=== PATIENT | male | born 1965 | race Caucasian/White ===

== ENCOUNTER 2019-06-30 17:33 | Inpatient (IN) | payer MEDICAID ==
[2019-06-29 22:15] VITALS: BP 128/78
[~2019-06-30] VITALS: Ht 185.4 cm; Wt 108.9 kg
--- NOTE | 2019-06-30 17:33 | NUR ---
ED Nurse Note: patient walked into ED from home c/o coughing, congestion, SOB, chest pain on the left side when coughing. patient reports he had finished zpack that was prescribed for his sinusitis. patient placed on an isolation room, on a patient monitor, ekg being done at bedside. patient is 97% on RA. geen is alert awake x4 ambulatory breathing unlabored and even, speaking in full sentences.
[2019-06-30 18:02] VITALS: BP 107/91
--- NOTE | 2019-06-30 18:20 | Diagnostic Imaging Report ---
EXAM: XR Chest, 1 View CLINICAL HISTORY: SOB TECHNIQUE: Frontal view of the chest. COMPARISON: No relevant prior studies available. FINDINGS: Lungs: Unremarkable. No consolidation. Pleural space: Unremarkable. No pneumothorax. Heart: Unremarkable. No cardiomegaly. Mediastinum: Unremarkable. Bones/joints: Thoracic dextrocurvature with fusion hardware. Left rib cerclage wires, which are fractured. IMPRESSION: No evidence of acute pulmonary disease. Spinal fusion hardware. Fractured left rib cerclage wires.
--- NOTE | 2019-06-30 18:31 | Emergency Room Report ---
History of Present Illness General Chief Complaint: Upper Respiratory Illness Source: Patient (Domenica Mireles) Present Illness HPI 53 YO male presents to the ED C/o SOB with Left sided CP and painful cough x 4 days. Pt. reports previously having sinus infection last week and finished a Z- Pack. Pt. only significant PMHx is HTN and hiatal hernia. Pt. 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 Pt. reports he quit smoking 8 years ago. Pt. denies productive cough or wheezing. He denies dizziness, lower extremity edema or palpitations. Pt. denies fevers or chills. He reports continued nasal congestion. No other aggravation or relieving factors at this time. Pt. reports he was given cough syrup by his PCP with no relief. Denies recent travel. Denies contact with persons who have tested positive for or are under investigation/quarantine for COVID-19. (Domenica Mireles) Allergies: Coded Allergies: AMPICILLIN (Verified Allergy, Unknown, 06/30/19) TRAMADOL (Verified Allergy, Unknown, 06/30/19) COVID-19 Screening Contact w/high risk pt: No Recent Travel to affected area: No Experienced COVID-19 symptoms?: Yes COVID-19 symptoms experienced: Shortness of Breath, Cough (Domenica Mireles) Patient History Past Medical History: see triage record Past Surgical History: none Pertinent Family History: none Reviewed Nursing Documentation: PMH: Agreed; PSxH: Agreed (Domenica Mireles) Nursing Documentation-PMH Hx Hypertension: Yes (Domenica Mireles) Review of Systems All Other Systems: negative except mentioned in HPI (Domenica Mireles) Physical Exam Vital Signs Date Time Temp Pulse Resp B/P (MAP) Pulse Ox O2 Delivery O2 Flow Rate FiO2 06/30/19 17:23 98.4 85 18 125/86 (99) 91 Room Air Sp02 EP Interpretation: reviewed, normal General Appearance: no apparent distress, alert, GCS 15, non-toxic Head: normocephalic, atraumatic Eyes: bilateral eye normal inspection, bilateral eye PERRL ENT: hearing grossly normal, normal voice, nasal congestion Neck: full range of motion Respiratory: chest non-tender, lungs clear, normal breath sounds, no respiratory distress, no accessory muscle use, no wheezing, speaking full sentences Cardiovascular #1: regular rate, rhythm Gastrointestinal: normal bowel sounds, non tender, soft, other - distented soft abdomen Musculoskeletal: normal range of motion, gait/station normal, non-tender Neurologic: alert, motor strength/tone normal, oriented x3, sensory intact, responsive, speech normal Psychiatric: judgement/insight normal Skin: no rash, normal color Lymphatic: no adenopathy (Domenica Mireles) Medical Decision Making PA Attestation Dr. Palomo is my supervising Physician whom patient management has been discussed with. (Domenica Mireles) PA Attestation I participate in the care of this patient along with GM Greene Briefly, this is a 53-year-old male who presents for evaluation chest pain shortness of breath. He was recently treated for an upper respiratory infection and tested negative for COVID-19 at urgent care 5 days ago. Over the past 2 days he has worsening exertional dyspnea and left-sided chest pain which he describes as a pressure. It is present both at rest and with exertion though worse with exertion. He has a dry nonproductive cough. Denies fever or chills. Troponin and labs are largely within normal limits however his EKG shows diffuse T wave inversions in severity in the inferior lateral leads. The patient has not ever had a cardiology evaluation. Will give aspirin and admit for cardiology work-up. (Jimbo Palomo MD) Diagnostic Impression: Primary Impression: ACS (acute coronary syndrome) Additional Impression: Chest pain ER Course 53 YO male presents to the ED C/o SOB with Left sided CP and painful cough x 4 days. Pt. reports previously having sinus infection last week and finished a Z- Pack. Pt. only significant PMHx is HTN and hiatal hernia. Pt. 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 Pt. reports he quit smoking 8 years ago. Pt. denies productive cough or wheezing. He denies dizziness, lower extremity edema or palpitations. Pt. denies fevers or chills. He reports continued nasal congestion. No other aggravation or relieving factors at this time. Pt. reports he was given cough syrup by his PCP with no relief. Denies recent travel. Denies contact with persons who have tested positive for or are under investigation/quarantine for COVID-19. Ddx considered but are not limited to AR, pneumonia, contusion, costochondritis , PE, ACS, Shoulder strain, Chest wall contusion. aortic dissection. COVID-19 Vital signs: Pt. initial O2 Saturations was low 90'1, after being placed on belt cleaner VS are WNL, pt. is afebrile H&PE are most consistent with need to R/O cardiac, DVT vs. Covid. ORDERS: - EK bpm with signs of ischemia demonstrated by inversed T-waves in the anterolateral leads. -CBC: WNL -CMP: WNL -Troponin: WNL -D-Dimer: Pending at time of sign out CXR: WNL ED INTERVENTIONS: - PT. placed on cardiac monitoring. DISCHARGE: At this time pt. is stable for d/c to home. Will provide printed patient care instructions, and any necessary prescriptions. Care plan and follow up instructions have been discussed with the patient prior to discharge. (Domenica Mireles) Laboratory Tests Test 06/30/19 17:18 06/30/19 17:28 06/30/19 19:07 D-Dimer 0.21 mg/L FEU (0.00-0.49) White Blood Count 6.3 K/UL (4.8-10.8) Red Blood Count 5.09 M/UL (4.70-6.10) Hemoglobin 14.8 G/DL (14.2-18.0) Hematocrit 45.2 % (42.0-52.0) Mean Corpuscular Volume 89 FL (80-99) Mean Corpuscular Hemoglobin 29.1 PG (27.0-31.0) Mean Corpuscular Hemoglobin Concent 32.8 G/DL (32.0-36.0) Red Cell Distribution Width 13.5 % (11.6-14.8) Platelet Count 208 K/UL (150-450) Mean Platelet Volume 9.0 FL (6.5-10.1) Neutrophils (%) (Auto) 57.9 % (45.0-75.0) Lymphocytes (%) (Auto) 27.9 % (20.0-45.0) Monocytes (%) (Auto) 7.3 % (1.0-10.0) Eosinophils (%) (Auto) 5.2 % (0.0-3.0) H Basophils (%) (Auto) 1.7 % (0.0-2.0) Sodium Level 142 MMOL/L (136-145) Potassium Level 3.9 MMOL/L (3.5-5.1) Chloride Level 106 MMOL/L (98-107) Carbon Dioxide Level 25 MMOL/L (21-32) Anion Gap 11 mmol/L (5-15) Blood Urea Nitrogen 16 mg/dL (7-18) Creatinine 1.1 MG/DL (0.55-1.30) Estimated Glomerular Filtration Rate > 60 mL/min (>60) Glucose Level 117 MG/DL (74-106) H Calcium Level 8.4 MG/DL (8.5-10.1) L Total Bilirubin 0.2 MG/DL (0.2-1.0) Aspartate Amino Transferase (AST) 15 U/L (15-37) Alanine Aminotransferase (ALT) 32 U/L (12-78) Alkaline Phosphatase 101 U/L (46-116) Troponin I 0.000 ng/mL (0.000-0.056) Total Protein 7.2 G/DL (6.4-8.2) Albumin 3.8 G/DL (3.4-5.0) Globulin 3.4 g/dL Albumin/Globulin Ratio 1.1 (1.0-2.7) Arterial Blood pH 7.400 (7.350-7.450) Arterial Blood Partial Pressure CO2 32.9 mmHg (35.0-45.0) L Arterial Blood Partial Pressure O2 77.8 mmHg (75.0-100.0) Arterial Blood HCO3 19.9 mmol/L (22.0-26.0) L Arterial Blood Oxygen Saturation 95.3 % (95-100) Arterial Blood Base Excess -3.9 (-2-2) L Terry Test Positive (Jimbo Palomo MD) EKG Diagnostic Results EP Interpretation: Dr. Palomo Rate: normal - 77 bpm Rhythm: NSR ST Segments: other Other Impression signs of ischemia demonstrated by inversed T-waves in the anterolateral leads. ASA given to the pt in ED: No PA Scribe Text This Interpretation was scribed by GM Mireles. (Domenica Mireles) Chest X-Ray Diagnostic Results Chest X-Ray Diagnostic Results : Chest X-Ray Ordered: Yes # of Views/Limited/Complete: 1 View Indication: Shortness of Breath EP Interpretation: Yes PA Xray: Interpretation reviewed, by supervising MD, and agrees with findings. Interpretation: no consolidation, no effusion, no acute cardiopulmonary disease Impression: No acute disease Electronically Signed by: Domenica Mireles PA-C (Domenica Mireles) Last Vital Signs Date Time Temp Pulse Resp B/P (MAP) Pulse Ox O2 Delivery O2 Flow Rate FiO2 06/30/19 18:15 81 19 Room Air 06/30/19 18:02 98.4 107/91 97 (Domenica Mireles) Domenica Mireles June 30, 2019 18:31 Jimbo Palomo MD June 30, 2019 20:37
[2019-06-30 18:36] LABS: ANION GAP 11 mmol/L (5-15); BLOOD UREA NITROGEN 16 mg/dL (7-18); CALCIUM 8.4 MG/DL (8.5-10.1); CARBON DIOXIDE 25 MMOL/L (21-32); CHLORIDE 106 MMOL/L (98-107); CREATININE 1.1 MG/DL (0.55-1.30); POTASSIUM 3.9 MMOL/L (3.5-5.1); SODIUM 142 MMOL/L (136-145)
[2019-06-30 18:41] LABS: ALANINE AMINOTRANSFERASE 32 U/L (12-78); ALBUMIN 3.8 G/DL (3.4-5.0); ALBUMIN/GLOBULIN RATIO 1.1 (1.0-2.7); ALKALINE PHOSPHATASE 101 U/L (46-116); ASPARTATE AMINO TRANSFERASE 15 U/L (15-37); BILIRUBIN,TOTAL 0.2 MG/DL (0.2-1.0)
[2019-06-30 18:46] LABS: BASOPHILS % (AUTO) 1.7 % (0.0-2.0); EOSINOPHILS % (AUTO) 5.2 % (0.0-3.0); HEMATOCRIT 45.2 % (42.0-52.0); HEMOGLOBIN 14.8 G/DL (14.2-18.0); LYMPHOCYTES % (AUTO) 27.9 % (20.0-45.0); MEAN CORPUSCULAR VOLUME 89 FL (80-99); MONOCYTES % (AUTO) 7.3 % (1.0-10.0); NEUTROPHILS % (AUTO) 57.9 % (45.0-75.0); PLATELET COUNT 208 K/UL (150-450); RED BLOOD COUNT 5.09 M/UL (4.70-6.10); RED CELL DISTRIBUTION WIDTH 13.5 % (11.6-14.8); WHITE BLOOD COUNT 6.3 K/UL (4.8-10.8)
--- NOTE | 2019-06-30 19:09 | NUR ---
HAND-OFF: Report given to Chelsey ZUNIGA.
--- NOTE | 2019-06-30 19:12 | NUR ---
ED Nurse Note: Report received from EFRAIN Hendricks. Pt is resting in bed, NAD, speaking in full sentences. VSS.
[2019-06-30 19:15] VITALS: BP 112/88
[2019-06-30 21:20] VITALS: BP 143/86
--- NOTE | 2019-06-30 21:20 | NUR ---
ED Nurse Note: Pt is resting in bed with NAD noted. Pt is aaox4, talkative with RN. VSS. Pt is aware of admission. Pt provided with warm blankets. Will continue to monitor.
--- NOTE | 2019-06-30 22:00 | NUR ---
ED Nurse Note: Report given to EFRAIN Galvez.
--- NOTE | 2019-06-30 22:10 | NUR ---
ED Nurse Note: Pt is stable for transfer to tele unit per ERMD. Pt is aaox4, VSS, NAD. Pt transported to unit via gurney by patricia and RN, connected to label press operator. Pt belongings sent with pt. Pt IV is patent and intact.
--- NOTE | 2019-06-30 22:15 | NUR ---
ADMIT ENTRY Received 53 y.o male pt. from ER via stretcher with Acute Coronary Syndrome and left sided chest pain 06/30. A&Ox4, appears relaxed, gait steady. Transferred self with ease from stretcher to bed. VS 97.2-63-18-128/78 97% room air. Pt stated unable to read. Hx of HTN, acid reflux and scoliosis with yesika placements 70% correction. Skin intact. 20g left hand. Troponin unremarkable. Continue to monitor, implement new orders as directed and assist as needed. Sinus rhythm on per telemetry.
[2019-07-01 00:01] VITALS: BP 118/75
[2019-07-01] MEDS ORDERED: Miralax 17gm pkt ORAL PRN (01:00)
--- NOTE | 2019-07-01 01:04 | NUR ---
Phoned Nell, immediate return call by Dr. Phan Vaca with new orders. Reviewed home meds, order to continue home meds as reported, give 325mg of aspirin one time order and begin Heparin Gtt per hospital protocol.
[2019-07-01] MEDS ORDERED: Heparin 25,000u/D5W 500ml 500 ML IV SCH ×4 (01:15→12:00)
[2019-07-01] MEDS ORDERED: Heparin 5000 units/ml inj IV SCH (01:15)
--- NOTE | 2019-07-01 03:50 | NUR ---
Heparin gtt began. 5000 unit bolus given via iv left hand. Heparin drip began 12 units/kg (25.11 ml/h) with baseline APTT 27. Next PTT scheduled for 1000 07/01/2019. Pt tolerated well. Monitor for s/s of bleeding. Pt education concerning nature of medicine and importance of assist to bathroom to prevent falls. Pt stated understood. Continue to monitor. No coughing observed. Chest pain continues 06/30.
[2019-07-01 08:00] VITALS: BP 126/93
--- NOTE | 2019-07-01 08:00 | NUR ---
HANDOFF REPORT Verbal report given to Christian RN. Pt resting quietly in bed. Heparin gtt continues unchanged at 26.11 ml/hr (12 units/kg) and no s/s of bleeding. No coughing. Relinquished care of patient at this time.
--- NOTE | 2019-07-01 08:31 | NUR ---
NURSE NOTES: Received report from Shari Antony RN. Patient c/o chest pain 5/10, on room air, saturating at 98 percent, bed in lowest position, call light within reach. Patient awake and alert, on telephone, asking for coffee, in no apparent distress.
[2019-07-01] MEDS: Lisinopril 10mg tab ORAL SCH (08:32)
[2019-07-01] MEDS: Docusate 100mg cap ORAL SCH ×2 (08:33→20:27)
[2019-07-01] MEDS: Aspirin EC 81mg tab ORAL SCH (08:33)
[2019-07-01] MEDS: DiphenhydrAMINE 25mg Tab ORAL SCH ×2 (08:39→17:26)
--- NOTE | 2019-07-01 08:49 | History & Physical ---
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 Patient denies fever, but was recently treated for a Sinus infection w/ Azithromycin. Currently he is doing well; his initial EKG showed T wave abnormality so patient was started on a heparin drip, and cardio has been consulted. Patient is not on aspirin at home. Patient denies sick contacts Currently patient states the chest pain has improved, his vitals are stable, and he is saturating well not requiring oxygen. Do not suspect COVID SH: Former Smoker, 20ppy history Drug HX: Formerly addicted to Meth FH: HTN, DM Home meds: For Allergies and GERD only Allergies: Coded Allergies: AMPICILLIN (Verified Allergy, Unknown, 06/30/19) TRAMADOL (Verified Allergy, Unknown, 06/30/19) COVID-19 Screening Contact w/high risk pt: No Recent Travel to affected area: No Experienced COVID-19 symptoms?: No COVID-19 symptoms experienced: Shortness of Breath, Cough Patient History History Provided By: Patient Healthcare decision maker Resuscitation status Full Code Advanced Directive on File Social History Social History: (1) Shortness of breath (2) Chest pain Review of Systems Review of Symptoms General ROS: no weight loss or fever Psychological ROS: no depression or mood changes, no memory loss Ophthalmic ROS: no visual changes or eye irritation ENT ROS: no nasal congestion, hearing loss, dizziness Allergy and Immunology ROS: no allergic symptoms or urticaria Hematological and Lymphatic ROS: no swollen glands, unusual bleeding or bruising Endocrine ROS: no polyuria, polydipsia, weight changes, temperature intolerance Respiratory ROS: + SOB Cardiovascular ROS: + chest pain Gastrointestinal ROS: denies abdominal pain, bright red blood in stool. Musculoskeletal ROS: no myalgias or arthralgias Neurological ROS: no TIA or stroke symptoms Dermatological ROS: no new or changing skin lesions, rashes or pruritis Physical Exam Physical Exam General appearance: alert, cooperative, no distress, appears stated age Head: Normocephalic, without obvious abnormality, atraumatic Eyes: conjunctivae/corneas clear. PERRL, EOM's intact. Fundi benign Throat: Lips, mucosa, and tongue normal. Teeth and gums normal Neck: supple, symmetrical, trachea midline, no adenopathy, thyroid: not enlarged, symmetric, no tenderness/mass/nodules, no carotid bruit and no JVD Lungs: clear to auscultation bilaterally, mild wheezing Heart: regular rate and rhythm, S1, S2 normal, no murmur, click, rub or gallop Abdomen: soft, non-tender. Bowel sounds normal. No masses, no organomegaly Extremities: extremities normal, atraumatic, no cyanosis or edema Pulses: 2+ and symmetric Skin: Skin color, texture, turgor normal. No rashes or lesions Neurologic: Grossly normal Last 24 Hour Vital Signs Date Time Temp Pulse Resp B/P (MAP) Pulse Ox O2 Delivery O2 Flow Rate FiO2 07/01/19 08:32 126/93 07/01/19 08:00 97.3 61 20 126/93 (104) 98 07/01/19 00:01 20 118/75 (89) 95 07/01/19 00:00 96.4 62 06/30/19 23:43 Room Air 06/30/19 22:48 Room Air 06/30/19 22:16 63 06/30/19 22:10 97.6 63 21 140/92 99 Room Air 06/30/19 21:20 97.5 66 22 143/86 99 Room Air 06/30/19 19:15 98.4 78 19 112/88 98 Room Air 06/30/19 18:15 81 19 Room Air 06/30/19 18:02 98.4 81 19 107/91 97 Room Air 06/30/19 17:23 98.4 85 18 125/86 (99) 91 Room Air Laboratory Tests Test 06/30/19 17:18 06/30/19 17:28 06/30/19 19:07 07/01/19 02:56 D-Dimer 0.21 mg/L FEU (0.00-0.49) White Blood Count 6.3 K/UL (4.8-10.8) Red Blood Count 5.09 M/UL (4.70-6.10) Hemoglobin 14.8 G/DL (14.2-18.0) Hematocrit 45.2 % (42.0-52.0) Mean Corpuscular Volume 89 FL (80-99) Mean Corpuscular Hemoglobin 29.1 PG (27.0-31.0) Mean Corpuscular Hemoglobin Concent 32.8 G/DL (32.0-36.0) Red Cell Distribution Width 13.5 % (11.6-14.8) Platelet Count 208 K/UL (150-450) Mean Platelet Volume 9.0 FL (6.5-10.1) Neutrophils (%) (Auto) 57.9 % (45.0-75.0) Lymphocytes (%) (Auto) 27.9 % (20.0-45.0) Monocytes (%) (Auto) 7.3 % (1.0-10.0) Eosinophils (%) (Auto) 5.2 % (0.0-3.0) H Basophils (%) (Auto) 1.7 % (0.0-2.0) Sodium Level 142 MMOL/L (136-145) Potassium Level 3.9 MMOL/L (3.5-5.1) Chloride Level 106 MMOL/L (98-107) Carbon Dioxide Level 25 MMOL/L (21-32) Anion Gap 11 mmol/L (5-15) Blood Urea Nitrogen 16 mg/dL (7-18) Creatinine 1.1 MG/DL (0.55-1.30) Estimat Glomerular Filtration Rate > 60 mL/min (>60) Glucose Level 117 MG/DL (74-106) H Calcium Level 8.4 MG/DL (8.5-10.1) L Total Bilirubin 0.2 MG/DL (0.2-1.0) Aspartate Amino Transf (AST/SGOT) 15 U/L (15-37) Alanine Aminotransferase (ALT/SGPT) 32 U/L (12-78) Alkaline Phosphatase 101 U/L (46-116) Troponin I 0.000 ng/mL (0.000-0.056) Total Protein 7.2 G/DL (6.4-8.2) Albumin 3.8 G/DL (3.4-5.0) Globulin 3.4 g/dL Albumin/Globulin Ratio 1.1 (1.0-2.7) Arterial Blood pH 7.400 (7.350-7.450) Arterial Blood Partial Pressure CO2 32.9 mmHg (35.0-45.0) L Arterial Blood Partial Pressure O2 77.8 mmHg (75.0-100.0) Arterial Blood HCO3 19.9 mmol/L (22.0-26.0) L Arterial Blood Oxygen Saturation 95.3 % (95-100) Arterial Blood Base Excess -3.9 (-2-2) L Terry Test Positive Activated Partial Thromboplast Time 27 SEC (23-33) Height (Feet): 6 Height (Inches): 1.00 Weight (Pounds): 240 Medications Current Medications Medications (Trade) Dose Ordered Sig/Ronna Route PRN Reason Start Time Stop Time Status Last Admin Dose Admin Acetaminophen (Tylenol) 650 mg Q4H PRN ORAL FEVER 07/01/19 01:00 07/31/19 00:59 Acetaminophen (Tylenol) 650 mg Q4H PRN ORAL Mild Pain (Pain Scale 1-3) 07/01/19 01:00 07/31/19 00:59 Aspirin (Ecotrin) 81 mg DAILY ORAL 07/01/19 09:00 08/15/19 08:59 07/01/19 08:33 Atorvastatin Calcium (Lipitor) 80 mg BEDTIME ORAL 07/01/19 21:00 09/29/19 20:59 Cetirizine HCl (ZyrTEC) 10 mg DAILY ORAL 07/01/19 09:00 09/29/19 08:59 07/01/19 08:39 Diphenhydramine HCl (Benadryl) 25 mg BID ORAL 07/01/19 09:00 07/31/19 08:59 07/01/19 08:39 Docusate Sodium (Colace) 100 mg EVERY 12 HOURS ORAL 07/01/19 09:00 07/31/19 08:59 07/01/19 08:33 Heparin Sodium/ Dextrose 500 ml @ 26.127 mls/ hr ADJUST PER PROTOCOL IV 07/01/19 02:30 07/31/19 01:14 07/01/19 03:45 Lisinopril (ZestriL) 10 mg DAILY ORAL 07/01/19 09:00 07/31/19 08:59 07/01/19 08:32 Ondansetron HCl (Zofran) 4 mg Q6H PRN IVP Nausea & Vomiting 07/01/19 01:00 07/31/19 00:59 Pantoprazole (Protonix) 40 mg BID ORAL 07/01/19 09:00 07/31/19 08:59 07/01/19 08:32 Polyethylene Glycol (Miralax) 17 gm DAILYPRN PRN ORAL Constipation 07/01/19 01:00 07/31/19 00:59 Assessment/Plan Status: stable Assessment/Plan: Assessment #CP R/O ACS, EKG w/ non specific ST changes #HTN #Hx of Scoliosis Plan Consult to Cardiology S/P Heparin drip Trend Troponins, EKG, Echo ASA , Atorvastatin, Lisinopril, hold BB given bradycardia Patient recently finished home Azithro course and CXR clean; hold off on AB for now RT assessment prn Obtain and reconcile home meds DVT/GI ppx Cardiac Diet Lillie Crabtree D.O. July 01, 2019 08:49
--- NOTE | 2019-07-01 10:49 | NUR ---
NURSE NOTES: Herbie Abreu, is drawing blood for the aPTT.
[2019-07-01 12:00] VITALS: BP 131/99
[2019-07-01] MEDS ORDERED: Heparin 5000 units/ml inj SUBQ SCH (12:00)
[2019-07-01 16:00] VITALS: BP 133/82
--- NOTE | 2019-07-01 19:16 | Cardiac Electrophysiology PN ---
Subjective Subjective [id number] Objective Last 24 Hour Vital Signs Date Time Temp Pulse Resp B/P (MAP) Pulse Ox O2 Delivery O2 Flow Rate FiO2 07/01/19 16:00 97.7 61 20 133/82 (99) 96 07/01/19 16:00 61 07/01/19 12:00 97.8 63 20 131/99 (110) 97 07/01/19 12:00 58 07/01/19 09:00 Room Air 07/01/19 08:32 126/93 07/01/19 08:00 97.3 61 20 126/93 (104) 98 07/01/19 08:00 60 07/01/19 00:01 20 118/75 (89) 95 07/01/19 00:00 96.4 62 06/30/19 23:43 Room Air 06/30/19 22:48 Room Air 06/30/19 22:16 63 06/30/19 22:10 97.6 63 21 140/92 99 Room Air 06/30/19 21:20 97.5 66 22 143/86 99 Room Air Intake and Output 06/30/19 07/01/19 19:00 07:00 Intake Total 78.33 ml Output Total 400 ml Balance -321.67 ml IV Total 78.33 ml Output Urine Total 400 ml # Voids 2 Laboratory Tests Test 07/01/19 02:56 07/01/19 10:30 07/01/19 17:45 Activated Partial Thromboplast Time 27 SEC (23-33) 57 SEC (23-33) H 71 SEC (23-33) H Troponin I 0.000 ng/mL (0.000-0.056) Matthieu Hood MD July 01, 2019 19:16
--- NOTE | 2019-07-01 19:24 | NUR ---
NURSE NOTES: Pt received from Christian, RN alert and oriented x4 with no acute s/s of distress noted. IV site asymptomatic and patent on L hand 20g, saline lock. Bed in lowest position, call light and belongings within reach.
[2019-07-01] MEDS ORDERED: Lexiscan 0.4mg/5ml syringe IV PRN (19:30)
--- NOTE | 2019-07-01 19:38 | NUR ---
HAND-OFF: Report given to Maria G Liao RN. Patient sitting up in bed, awake and alert, watching television, IV patent in left hand, saline locked, no c/o pain, no SOB, bed in lowest position, call light within reach, on room air saturating at 98%.
--- NOTE | 2019-07-01 19:43 | NUR ---
NURSE NOTES: Endorsing follow-up on placing EKG into chart per Dr. Matthieu Hood request.
[2019-07-01 20:00] VITALS: BP 135/87
[2019-07-01] MEDS ORDERED: Atorvastatin 80mg tab ORAL SCH (21:00)
[2019-07-02] VITALS: BP 121/68
--- NOTE | 2019-07-02 02:30 | Consultation ---
DATE OF CONSULTATION: 07/01/2019 CARDIOLOGY CONSULTATION CONSULTING PHYSICIAN: Matthieu Hood MD. REFERRING PHYSICIAN: Bravo Camejo MD. REASON FOR CONSULTATION: Chest pain. HISTORY OF PRESENT ILLNESS: The patient is a 53-year-old gentleman with history of hypertension, gastroesophageal reflux disease, questionable myocardial infarction three years ago even though he never had cardiac catheterization. The patient also has history of drug use including crystal meth, but he says about 10 years ago. The patient also has history of severe scoliosis, status post surgical intervention. The patient was admitted to the hospital for increasing chest pain and shortness of breath. The patient was recently treated for sinus infection on azithromycin. The patient was started on heparin drip. However, he was ruled out for myocardial infarction and heparin drip was just discontinued. REVIEW OF SYSTEMS: Review of systems was negative other than what is mentioned in the history of present illness. PAST MEDICAL HISTORY: As mentioned above. FAMILY HISTORY: Includes hypertension and diabetes. ALLERGIES: . He is allergic to ampicillin and tramadol. SOCIAL HISTORY: He has history of heavy smoking as well as crystal meth use. PHYSICAL EXAMINATION: VITAL SIGNS: Show blood pressure is 132/82, pulse 61, respirations 18, and temperature 97.1. HEAD AND NECK: Showed no JVD or carotid bruit. LUNGS: Clear. CARDIOVASCULAR: Regular S1 and S2 with no gallop or murmur. ABDOMEN: Soft. EXTREMITIES: No pitting edema. LABORATORY AND DIAGNOSTIC DATA: His labs show white count 6.2, hemoglobin 14.8, hematocrit 45.5, platelet of 208. Sodium is 142, potassium 3.9, BUN of 16, creatinine 1.1. Troponin negative x2. ASSESSMENT AND PLAN: 1. Atypical chest pain. The patient was ruled out for myocardial infarction. He already had an echocardiogram, but the preliminary report show ejection fraction of 55% to 60%. We will schedule the patient for stress test in the morning for further evaluation. 2. Hyperlipidemia, on Lipitor. 3. Hypertension, on lisinopril 10 mg daily. 4. Gastroesophageal reflux disease on Protonix and . Thank you very much for allowing me to participate in the care of this patient. Please do not hesitate to contact me for any questions regarding my evaluation. Sincerely, Matthieu Hood M.D. DR: Alex JOB#: [id number] CC:
[2019-07-02 04:00] VITALS: BP 131/84
--- NOTE | 2019-07-02 05:15 | NUR ---
NURSE NOTES: EKG done and placed in chart.
--- NOTE | 2019-07-02 07:30 | NUR ---
NURSE NOTES: Received report from EFRAIN Goodman. Patient in bed resting, no active s/s cardiac, respiratory distress noticed at this time. Patient stated chest pain in and out and for now denies pain. Endorsed patient schedule for stress test, NPO at midnight. IV on left hand 20G, asymptomatic, patent, intact. Bed in lowest position, side rails upx3, call light within reach. Will continue to monitor.
--- NOTE | 2019-07-02 07:36 | NUR ---
HAND-OFF: Report given to EFRAIN Gutierrez.
[2019-07-02 08:00] VITALS: BP 128/78
--- NOTE | 2019-07-02 08:07 | General Progress Note ---
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 #CP R/O ACS, EKG w/ non specific ST changes #HTN #HLD #GERD -cont. in-pt medical care -ACS ruled out, trops negative, S/P Heparin drip -Echo EF 55-60% -ASA , Atorvastatin, Lisinopril, hold BB given bradycardia -PPI -Patient recently finished home Azithro course and CXR clean; hold off on AB for now -Cardiology following - stress test today, if negative OK for d/c home #Hx of Scoliosis -no acute issues at this time DVT/GI ppx Cardiac Diet Time spent: 28 mins, 15 mins spent with pt counseling and coordination of care w /RNDr. Additional 30 mins spent w/review of H&P, service delivery management consultant notes, labs, radiographic findings and discussion w/cardio. Subjective Allergies: Coded Allergies: AMPICILLIN (Verified Allergy, Unknown, 06/30/19) TRAMADOL (Verified Allergy, Unknown, 06/30/19) Subjective F/u for chest pain, ACS ruled out. Pt getting stress test today, states he is feeling much better. Notes sinus pain, denies f/c, states he does not want anything for his sinuses as he gets this often and is managed on benadryll and brandi. Objective Last 24 Hour Vital Signs Date Time Temp Pulse Resp B/P (MAP) Pulse Ox O2 Delivery O2 Flow Rate FiO2 07/02/19 04:00 73 07/02/19 04:00 98.7 64 18 131/84 (100) 98 07/02/19 00:00 97.7 59 18 121/68 (85) 97 07/02/19 00:00 69 07/01/19 21:00 Room Air 07/01/19 20:00 98.2 62 18 135/87 (103) 98 07/01/19 20:00 65 07/01/19 16:00 97.7 61 20 133/82 (99) 96 07/01/19 16:00 61 5/10/20 12:00 97.8 63 20 131/99 (110) 97 07/01/19 12:00 58 07/01/19 09:00 Room Air 07/01/19 08:32 126/93 Intake and Output 07/01/19 07/02/19 19:00 07:00 Intake Total 682.559 ml 350 ml Balance 682.559 ml 350 ml Intake Oral 400 ml 350 ml IV Total 282.559 ml # Voids 3 3 Laboratory Tests 07/01/19 10:30: Activated Partial Thromboplast Time 57H, Troponin I 0.000 07/01/19 17:45: Activated Partial Thromboplast Time 71H Height (Feet): 6 Height (Inches): 1.00 Weight (Pounds): 240 Objective General appearance: alert, cooperative, no distress, appears stated age Head: Normocephalic, without obvious abnormality, atraumatic Eyes: conjunctivae/corneas clear. EOM's intact. Throat: Lips, mucosa, and tongue normal. Teeth and gums normal Neck: trachea midline, no adenopathy, thyroid: not enlarged, symmetric, no tenderness/mass/nodules, no carotid bruit and no JVD Lungs: clear to auscultation bilaterally, mild wheezing Heart: regular rate and rhythm, S1, S2 normal, no murmur, click, rub or gallop Abdomen: soft, non-tender. Bowel sounds normal. No masses, no organomegaly Extremities: extremities normal, atraumatic, no cyanosis or edema Pulses: 2+ and symmetric Skin: Skin color, texture, turgor normal. No rashes or lesions Neurologic: Grossly normal Jose Martin M.D. July 02, 2019 08:07
[2019-07-02 08:55] LABS: BASOPHILS % (AUTO) 1.7 % (0.0-2.0); EOSINOPHILS % (AUTO) 4.6 % (0.0-3.0); HEMATOCRIT 44.5 % (42.0-52.0); HEMOGLOBIN 15.5 G/DL (14.2-18.0); LYMPHOCYTES % (AUTO) 27.6 % (20.0-45.0); MEAN CORPUSCULAR VOLUME 85 FL (80-99); MONOCYTES % (AUTO) 7.5 % (1.0-10.0); NEUTROPHILS % (AUTO) 58.6 % (45.0-75.0); PLATELET COUNT 201 K/UL (150-450); RED BLOOD COUNT 5.23 M/UL (4.70-6.10); WHITE BLOOD COUNT 5.9 K/UL (4.8-10.8)
[2019-07-02] MEDS: DiphenhydrAMINE 25mg Tab ORAL SCH (09:00)
[2019-07-02] MEDS: Docusate 100mg cap ORAL SCH ×2 (09:00→10:07)
[2019-07-02] MEDS: Lisinopril 10mg tab ORAL SCH (09:00)
--- NOTE | 2019-07-02 09:48 | NUR ---
CASE MANAGEMENT:REVIEW 53 YR OLD MALE WALKED IN TO ER CC; COUGH, CONGESTION AND SOB. LEFT SIDED CHEST PAIN WITH COUGHING PMH: FINISHED Z-PACK FOR SINUSITIS SI:ACS. CHEST PAIN 98.4 85 18 125/86 91% ON RA PCO2-32.9 HCO3-19.9 TROPONIN(-) IS: HEPARIN GTT ASA PO COVID 19 SWAB D-DIMER CHEST XRAY : TO TELEMETRY DCP; FROM HOME
[2019-07-02 10:01] LABS: ANION GAP 9 mmol/L (5-15); BLOOD UREA NITROGEN 20 mg/dL (7-18); CALCIUM 9.2 MG/DL (8.5-10.1); CARBON DIOXIDE 29 MMOL/L (21-32); CHLORIDE 103 MMOL/L (98-107); CHOLESTEROL 243 MG/DL (< 200); HDL CHOLESTEROL 43 MG/DL (40-60); POTASSIUM 4.8 MMOL/L (3.5-5.1); SODIUM 141 MMOL/L (136-145); TRIGLYCERIDES 284 MG/DL (30-150)
--- NOTE | 2019-07-02 10:04 | NUR ---
CASE MANAGEMENT:REVIEW 07/02/19 SI: ACS 98.7 64 18 131/84 98% ON RA TROPONIN(-) X2 IS: LIPITOR PO QHS IV LEXISCAN X1 COLACE PO Q12 ASA PO QD LISINOPRIL PO QD PROTONIX PO BID BENADRYL PO BID ZYRTEC PO QD : TELEMETRY DCP: FROM HOME PLAN: MAINTAIN ISOLATION ~ PENDING COVID 19 RESULTS STRESS TEST
[2019-07-02] MEDS: Aspirin EC 81mg tab ORAL SCH (10:07)
--- NOTE | 2019-07-02 10:47 | NUR ---
*-* NO INSURANCE INFORMATION IN THE BAR UNABLE TO SEND CLINICALS OR REVIEWS *-*
--- NOTE | 2019-07-02 10:47 | NUR ---
*-* INSURANCE *-* ALL CLINICALS AND REVIEWS HAVE BEEN FAXED TO: [employer] [phone] Work Work Fax Addendum: 07/02/19 at 1051 by MARILEE WANG ALSO SENT TO INSURANCE INFO IN THE [facility] [phone] Work [phone] FAX
[2019-07-02 12:00] VITALS: BP 131/87
--- NOTE | 2019-07-02 13:00 | Cardiac Electrophysiology PN ---
Assessment/Plan Assessment/Plan 1. Atypical chest pain. Was ruled out for myocardial infarction. Echocardiogram show ejection fraction of 55% to 60%. AWaiting results of stress test 2. Hyperlipidemia, on Lipitor. 3. Hypertension, on lisinopril 10 mg daily. 4. Gastroesophageal reflux disease on Protonix DW RN Subjective Subjective No CP or SOB. Getting 3rd part of stress test today Objective Last 24 Hour Vital Signs Date Time Temp Pulse Resp B/P (MAP) Pulse Ox O2 Delivery O2 Flow Rate FiO2 07/02/19 09:00 Room Air 07/02/19 09:00 128/78 07/02/19 08:00 97.7 80 18 128/78 (95) 96 07/02/19 04:00 73 07/02/19 04:00 98.7 64 18 131/84 (100) 98 07/02/19 00:00 97.7 59 18 121/68 (85) 97 07/02/19 00:00 69 07/01/19 21:00 Room Air 07/01/19 20:00 98.2 62 18 135/87 (103) 98 07/01/19 20:00 65 07/01/19 16:00 97.7 61 20 133/82 (99) 96 07/01/19 16:00 61 Intake and Output 07/01/19 07/02/19 19:00 07:00 Intake Total 682.559 ml 350 ml Balance 682.559 ml 350 ml Intake Oral 400 ml 350 ml IV Total 282.559 ml # Voids 3 3 Laboratory Tests Test 07/01/19 17:45 07/02/19 08:20 Activated Partial Thromboplast Time 71 SEC (23-33) H White Blood Count 5.9 K/UL (4.8-10.8) Red Blood Count 5.23 M/UL (4.70-6.10) Hemoglobin 15.5 G/DL (14.2-18.0) Hematocrit 44.5 % (42.0-52.0) Mean Corpuscular Volume 85 FL (80-99) Mean Corpuscular Hemoglobin 29.6 PG (27.0-31.0) Mean Corpuscular Hemoglobin Concent 34.8 G/DL (32.0-36.0) Red Cell Distribution Width 12.0 % (11.6-14.8) Platelet Count 201 K/UL (150-450) Mean Platelet Volume 7.2 FL (6.5-10.1) Neutrophils (%) (Auto) 58.6 % (45.0-75.0) Lymphocytes (%) (Auto) 27.6 % (20.0-45.0) Monocytes (%) (Auto) 7.5 % (1.0-10.0) Eosinophils (%) (Auto) 4.6 % (0.0-3.0) H Basophils (%) (Auto) 1.7 % (0.0-2.0) Sodium Level 141 MMOL/L (136-145) Potassium Level 4.8 MMOL/L (3.5-5.1) Chloride Level 103 MMOL/L (98-107) Carbon Dioxide Level 29 MMOL/L (21-32) Anion Gap 9 mmol/L (5-15) Blood Urea Nitrogen 20 mg/dL (7-18) H Creatinine 1.0 MG/DL (0.55-1.30) Estimat Glomerular Filtration Rate > 60 mL/min (>60) Glucose Level 104 MG/DL (74-106) Hemoglobin A1c 5.9 % (4.3-6.0) Calcium Level 9.2 MG/DL (8.5-10.1) Troponin I 0.000 ng/mL (0.000-0.056) Triglycerides Level 284 MG/DL (30-150) H Cholesterol Level 243 MG/DL (< 200) H LDL Cholesterol 158 mg/dL (<100) H HDL Cholesterol 43 MG/DL (40-60) Cholesterol/HDL Ratio 5.7 (3.3-4.4) H Thyroid Stimulating Hormone (TSH) 1.412 uiU/mL (0.358-3.740) Objective HEAD AND NECK: Showed no JVD or carotid bruit. LUNGS: Clear. CARDIOVASCULAR: Regular S1 and S2 with no gallop or murmur. ABDOMEN: Soft. EXTREMITIES: No pitting edema. Matthieu Hood MD July 02, 2019 13:00
--- NOTE | 2019-07-02 13:49 | Diagnostic Imaging Report ---
Indications: Chest pain Technique: Single day single isotope protocol utilized. Initially, resting images obtained using IV administration 10.9 millicuries 99M technetium Myoview. Subsequently, patient underwent lexiscan stress testing. See cardiology report for details. During Lexiscan infusion, IV administration 30.5 mCi 99 M technetium Myoview. SPECT and planar images obtained. SPECT images gated to 8 phases of the cardiac cycle were also obtained, and reformatted into cine images for evaluation of ejection fraction. Comparison: none Findings: Per cardiology report, patient experienced no symptoms during the infusion. Per cardiology report, resting EKG demonstrates normal sinus rhythm. Presence or absence of ST changes during infusion is not described. On imaging, there is questionably a tiny area of decreased perfusion at the inferolateral wall at the apex seen on only one or 2 slices on the axial and coronal projections. This is not evident on the post stress images. No other fixed nor reversible perfusion defects are demonstrated. Normal of ventricular chamber size. Calculated post stress ejection fraction 71%. No evidence of wall motion abnormality Impression: Nonischemic clinical response to pharmacologic stress, per cardiology report Nonischemic electrocardiographic response to pharmacologic stress, per cardiology report Very questionable tiny focal area of reversible decreased perfusion in the inferolateral wall at the apex. Suspect artifactual, but small focal area of ischemia not completely excludable. Correlate with clinical findings. No other perfusion abnormality demonstrated Calculated post stress ejection fraction greater than 70% Calculated post stress ejection fraction %
--- NOTE | 2019-07-02 14:41 | NUR ---
NURSE NOTES: Per Dr. Hood, patient cleared from cardiology stand point. Dr. Martin made aware.
[2019-07-02] MEDS ORDERED: PANTOPRAZOLE SO40 MG ORAL (14:44)
[2019-07-02] MEDS ORDERED: ASPIRIN EC81 MG ORAL (14:44)
[2019-07-02] MEDS ORDERED: ZESTRIL10 M1 ORAL (14:44)
[2019-07-02] MEDS ORDERED: LIPITOR80 MG ORAL (14:44)
--- NOTE | 2019-07-02 14:47 | Discharge Summary ---
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 ACS was ruled out, trops negative, EF 55-60%. Cardio was consulted and pt underwent nuclear med stress test which was negative. Pt to be d/c home w/ASA, statin, PPI for 14 days, and lisinopril given HTN during hospital stay. Pt instructed to f/u w/PCP as o/p for medication adjustments. d/c diagnosis #Atypical CP, ACS ruled out, likely2/2 GERD #HTN #HLD #GERD #Hx of Scoliosis d/c planning >30 mins. Discharge Medications New Medications: Aspirin Ec* (Aspirin Ec*) 81 Mg Tablet. 81 MG ORAL DAILY for 30 Days, #30 TAB 3 Refills Atorvastatin (Lipitor) 80 Mg Tablet 40 MG ORAL BEDTIME for 30 Days, #30 TAB 3 Refills Lisinopril* (Zestril*) 10 Mg Tablet 10 MG ORAL DAILY for 30 Days, #30 TAB 3 Refills Pantoprazole* (Pantoprazole*) 40 Mg Tablet. 40 MG ORAL BID for 14 Days, #28 TAB Discharge Condition Upon Discharge: stable Discharge Vital Signs Last Vital Signs Date Time Temp Pulse Resp B/P (MAP) Pulse Ox O2 Delivery O2 Flow Rate FiO2 07/02/19 09:00 Room Air 07/02/19 09:00 128/78 07/02/19 08:00 97.7 80 18 96 Discharge Disposition Patient was discharged to home Discharge Instructions Discharge Instructions Follow up with: PCP in 3-5 days. Jose Martin M.D. July 02, 2019 14:47
--- NOTE | 2019-07-02 15:55 | NUR ---
NURSE NOTES: Patient discharged per Dr. Martin. Per [facility], received prescription for the patient. Patient made aware of medication, educated for side effects and benefits. IV removed, ID band removed and placed in shredder, truck engine technician returned to laboratory tech. Patient left with all belongings, family member, Danae picked up the patient via private vehicle in a stable condition.
--- NOTE | 2019-07-03 15:04 | NUR ---
*-* INSURANCE *-* UPDATED CLINICALS AND DISCHARGE SUMMARY HAVE BEEN FAXED TO: [facility] [phone] Work Work Fax & [facility] [phone] Work [phone] FAX
== END 2019-07-02 17:13 | disposition home or self-care (01) | DRG 243 ==
LOC: EDBD 17:33 → EMR 18:45 → EDBEDREQ 20:31 → 2E 21:38
DX: K21.9 Gastro-esophageal reflux disease without esophagitis (principal); R07.89 Other chest pain; I10 Essential (primary) hypertension; Z88.6 Allergy status to analgesic agent; Z88.1 Allergy status to other antibiotic agents; I25.2 Old myocardial infarction; E78.5 Hyperlipidemia, unspecified; Z87.891 Personal history of nicotine dependence; F15.21 Other stimulant dependence, in remission; K44.9 Diaphragmatic hernia without obstruction or gangrene
CPT/HCPCS: 36415; 36600; 71045; 78452; 80048; 80053; 80061; 82803; 83036; 84443; 84484; 85025; 85379; 85730; 93005; 93017; 93306; 99285; J2785

== ENCOUNTER 2019-08-17 11:32 | Emergency (ER) | payer MEDICAID, OTHER ==
[~2019-08-17] VITALS: Ht 185.4 cm; Wt 108.9 kg
[~2019-08-17 11:32] MED LIST: ASPIRIN EC81 MG ORAL; LIPITOR80 MG ORAL; PANTOPRAZOLE SO40 MG ORAL; ZESTRIL10 M1 ORAL
[2019-08-17 11:45] VITALS: BP 120/76
[2019-08-17] MEDS ORDERED: Ketorolac 30mg Inj IV ONE (11:45)
[2019-08-17] MEDS ORDERED: Omnipaque-300 100ml vial INJ PRN (11:45)
[2019-08-17] MEDS ORDERED: PROPRANOLOL HCL40 MG ORAL (11:47)
[2019-08-17] MEDS ORDERED: BANOPHEN50 MG PO (11:47)
[2019-08-17] MEDS ORDERED: CARAFATE1 G1 ORAL (11:47)
[2019-08-17] MEDS ORDERED: LEVOCETIRIZINE D5 MG ORAL (11:47)
[2019-08-17] MEDS ORDERED: SULFAMETHOXAZO480 ML ORAL (11:47)
--- NOTE | 2019-08-17 11:48 | NUR ---
ED Nurse Note:pt. came with c/o right flank pain started today
--- NOTE | 2019-08-17 11:53 | Emergency Room Report ---
History of Present Illness General Chief Complaint: Abdominal Pain Source: Patient, Medical Record Present Illness HPI 53-year-old male history of hypertension, presents with right flank pain that started suddenly, no aggravating relieving factors he describes the pain is sharp, severity is moderate, constant, no nausea no vomiting no diarrhea he does endorse some constipation no fevers chills or shortness of breath no chest pain, patient presents for evaluation and treatment Allergies: Coded Allergies: AMPICILLIN (Verified Allergy, Unknown, 06/30/19) TRAMADOL (Verified Allergy, Unknown, 06/30/19) COVID-19 Screening Contact w/high risk pt: No Recent Travel to affected area: No Experienced COVID-19 symptoms?: No COVID-19 symptoms experienced: Shortness of Breath, Cough COVID-19 Testing performed QUALITY MANAGER: No Patient History Past Medical History: see triage record Reviewed Nursing Documentation: PMH: Agreed; PSxH: Agreed Nursing Documentation-PMH Hx Cardiac Problems: Yes - "3 years ago hx of heart attack" Hx Hypertension: Yes - back surgery Hx Neurological Problems: No Review of Systems All Other Systems: negative except mentioned in HPI Physical Exam Vital Signs Date Time Temp Pulse Resp B/P (MAP) Pulse Ox O2 Delivery O2 Flow Rate FiO2 08/17/19 11:36 98.2 62 20 120/76 (91) 95 Room Air Sp02 EP Interpretation: reviewed, normal General Appearance: well appearing, no apparent distress, alert Head: normocephalic, atraumatic Eyes: bilateral eye PERRL, bilateral eye EOMI ENT: uvula midline, moist mucus membranes Neck: supple, thyroid normal, supple/symm/no masses Respiratory: lungs clear, no respiratory distress, no retraction, no accessory muscle use Cardiovascular #1: normal peripheral pulses, regular rate, rhythm, no edema, no gallop, no murmur Gastrointestinal: soft, no guarding, no rebound, tenderness - Mild tenderness right lower quadrant Genitourinary: CVA tenderness (R) - Mild Musculoskeletal: normal inspection Neurologic: alert, oriented x3 Psychiatric: mood/affect normal Skin: no rash, warm/dry Medical Decision Making Diagnostic Impression: Primary Impression: Ileitis ER Course 53-year-old male presents with right lower quadrant pain, left lower quadrant pain, right flank pain, middle lower abdominal pain differential diagnosis includes appendicitis diverticulitis, gastroenteritis. Patient's abdomen is mildly tender on the left lower quadrant right lower quadrant mid quadrant, no rebound no guarding no peritoneal signs There is a question of developing ileitis on the CT scan, appendix is not visualized, patient given strict return precautions for appendicitis patient will return in 24 hours for repeat abdominal exam. Will provide patient with antibiotics, Zofran, famotidine Disposition home with return precautions Laboratory Tests Test 08/17/19 11:55 White Blood Count 8.9 K/UL (4.8-10.8) Red Blood Count 4.83 M/UL (4.70-6.10) Hemoglobin 14.6 G/DL (14.2-18.0) Hematocrit 44.1 % (42.0-52.0) Mean Corpuscular Volume 91 FL (80-99) Mean Corpuscular Hemoglobin 30.2 PG (27.0-31.0) Mean Corpuscular Hemoglobin Concent 33.1 G/DL (32.0-36.0) Red Cell Distribution Width 12.5 % (11.6-14.8) Platelet Count 174 K/UL (150-450) Mean Platelet Volume 8.5 FL (6.5-10.1) Neutrophils (%) (Auto) 69.2 % (45.0-75.0) Lymphocytes (%) (Auto) 19.6 % (20.0-45.0) L Monocytes (%) (Auto) 6.5 % (1.0-10.0) Eosinophils (%) (Auto) 3.4 % (0.0-3.0) H Basophils (%) (Auto) 1.3 % (0.0-2.0) Urine Color Yellow Urine Appearance Clear Urine pH 5 (4.5-8.0) Urine Specific [place] 1.015 (1.005-1.035) Urine Protein Negative (NEGATIVE) Urine Glucose (UA) Negative (NEGATIVE) Urine Ketones Negative (NEGATIVE) Urine Blood Negative (NEGATIVE) Urine Nitrite Negative (NEGATIVE) Urine Bilirubin Negative (NEGATIVE) Urine Urobilinogen 1 MG/DL (0.0-1.0) H Urine Leukocyte Esterase 1+ (NEGATIVE) H Urine RBC 0-2 /HPF (0 - 0) H Urine WBC 2-4 /HPF (0 - 0) Urine Squamous Epithelial Cells Occasional /LPF Urine Bacteria Few /HPF (NONE) Sodium Level 136 MMOL/L (136-145) Potassium Level 4.4 MMOL/L (3.5-5.1) Chloride Level 102 MMOL/L (98-107) Carbon Dioxide Level 23 MMOL/L (21-32) Anion Gap 11 mmol/L (5-15) Blood Urea Nitrogen 16 mg/dL (7-18) Creatinine 1.2 MG/DL (0.55-1.30) Estimated Glomerular Filtration Rate > 60 mL/min (>60) Glucose Level 104 MG/DL (74-106) Calcium Level 8.4 MG/DL (8.5-10.1) L Total Bilirubin 0.3 MG/DL (0.2-1.0) Aspartate Amino Transferase (AST) 28 U/L (15-37) Alanine Aminotransferase (ALT) 37 U/L (12-78) Alkaline Phosphatase 152 U/L (46-116) H Total Protein 7.3 G/DL (6.4-8.2) Albumin 3.8 G/DL (3.4-5.0) Globulin 3.5 g/dL Albumin/Globulin Ratio 1.1 (1.0-2.7) Lipase 220 U/L (73-393) CT/MRI/US Diagnostic Results CT/MRI/US Diagnostic Results : Impression Procedure: CT Abdomen Pelvis w/Contrast EXAM: CT CT Abdomen Pelvis w/Contrast INDICATION: Abdominal pain. COMPARISON: None TECHNIQUE: Axial images were obtained through the abdomen pelvis with intravenous contrast. Sagittal and coronal reformats are generated. All CT scans at this facility are performed using dose modulation techniques as appropriate to a performed exam including the following: automated exposure control with adjustment of the mA and/or kV according to patient size. RADIATION DOSE: CTDIvol: 16.7 mGy DLP: 903.8 mGy-cm Dose information generated by the CT scanner is available in PACS. FINDINGS: Lung bases are clear. Extensive postoperative changes noted in the lower thoracic spine and upper lumbar spine. There is a moderate size hiatal hernia. The liver and spleen are homogeneous. Gallbladder is without sludge or stone and there is no wall thickening. The pancreas is unremarkable. Adrenals are normal in morphology. Small right renal cyst noted. Small bowel loops are nondistended. The distal terminal ileum is mildly thickened and there is slight surrounding induration. Question history of terminal ileitis or Crohn's disease. The appendix is not seen. The colon is also nondistended with average amount of stool. There is no free fluid or free air. No pathologic adenopathy demonstrated. Urinary bladder appears unremarkable. Mild degenerative changes of the spine noted. IMPRESSION: DISTAL TERMINAL ILEUM IS MILDLY THICKENED WITH SLIGHT SURROUNDING INDURATION. QUESTION HISTORY OF TERMINAL ILEITIS OR CROHN'S DISEASE. APPENDIX NOT VISUALIZED. POSTOPERATIVE CHANGES WITH FIXATION HARDWARE IN THE THORACOLUMBAR SPINE. MODERATE SIZE HIATAL HERNIA. Dictated By: Edson Whyte MD Electronically Signed By: Edson Whyte MD Signed Date/Time 08/17/19 1402 CC: Jason Mi MD Last Vital Signs Date Time Temp Pulse Resp B/P (MAP) Pulse Ox O2 Delivery O2 Flow Rate FiO2 08/17/19 11:45 98.2 62 20 120/76 95 Room Air Disposition: HOME, SELF-CARE Condition: Stable Scripts Ondansetron (Zofran) 4 Mg Tablet 4 MG ORAL Q8H PRN for Nausea & Vomiting, #10 TAB 0 Refills Prov: Jason Mi MD 08/17/19 Metronidazole* (FLAGYL*) 500 Mg Tablet 500 MG ORAL THREE TIMES A DAY, #30 TAB Prov: Jason Mi MD 08/17/19 Ciprofloxacin Hcl* (CIPROFLOXACIN HCL*) 500 Mg Tablet 500 MG ORAL Q12H, #20 TAB 0 Refills Prov: Jason Mi MD 08/17/19 Referrals: [facility]. [facility] Patient Instructions: Viral Gastroenteritis, Adult, [id number] Additional Instructions: The patient was provided with discharge instructions, notified to follow-up with a primary care doctor and or specialist in the next 24-48 hours, and to return to the ED if they have worsening of their symptoms. Please note that this report is being documented using [employer] technology. This can lead to erroneous entry secondary to incorrect interpretation by the dictating instrument. PLEASE RETURN TO ED IN 24 HOURS IF YOU HAVE WORSENING ABDOMINAL PAIN Jason Mi MD Aug 17, 2019 11:53
[2019-08-17 12:12] LABS: BASOPHILS % (AUTO) 1.3 % (0.0-2.0); EOSINOPHILS % (AUTO) 3.4 % (0.0-3.0); HEMATOCRIT 44.1 % (42.0-52.0); HEMOGLOBIN 14.6 G/DL (14.2-18.0); LYMPHOCYTES % (AUTO) 19.6 % (20.0-45.0); MEAN CORPUSCULAR VOLUME 91 FL (80-99); MONOCYTES % (AUTO) 6.5 % (1.0-10.0); NEUTROPHILS % (AUTO) 69.2 % (45.0-75.0); PLATELET COUNT 174 K/UL (150-450); RED BLOOD COUNT 4.83 M/UL (4.70-6.10); RED CELL DISTRIBUTION WIDTH 12.5 % (11.6-14.8); WHITE BLOOD COUNT 8.9 K/UL (4.8-10.8)
[2019-08-17 12:17] LABS: APPEARANCE,URINE CLEAR; BILIRUBIN, URINE NEGATIVE (NEGATIVE); COLOR,URINE YELLOW; GLUCOSE, URINE (UA) NEGATIVE (NEGATIVE); KETONES,URINE NEGATIVE (NEGATIVE); LEUKOCYTE ESTERASE ,URINE 1+ (NEGATIVE); NITRITE,URINE NEGATIVE (NEGATIVE); PH,URINE 5 (4.5-8.0); PROTEIN,URINE NEGATIVE (NEGATIVE); UROBILINOGEN,URINE 1 MG/DL (0.0-1.0)
[2019-08-17 12:37] LABS: ANION GAP 11 mmol/L (5-15); BLOOD UREA NITROGEN 16 mg/dL (7-18); CALCIUM 8.4 MG/DL (8.5-10.1); CARBON DIOXIDE 23 MMOL/L (21-32); CHLORIDE 102 MMOL/L (98-107); CREATININE 1.2 MG/DL (0.55-1.30); POTASSIUM 4.4 MMOL/L (3.5-5.1); SODIUM 136 MMOL/L (136-145)
[2019-08-17 12:41] LABS: ALANINE AMINOTRANSFERASE 37 U/L (12-78); ALBUMIN 3.8 G/DL (3.4-5.0); ALBUMIN/GLOBULIN RATIO 1.1 (1.0-2.7); ALKALINE PHOSPHATASE 152 U/L (46-116); ASPARTATE AMINO TRANSFERASE 28 U/L (15-37); BILIRUBIN,TOTAL 0.3 MG/DL (0.2-1.0)
--- NOTE | 2019-08-17 14:07 | Diagnostic Imaging Report ---
EXAM: CT CT Abdomen Pelvis w/Contrast INDICATION: Abdominal pain. COMPARISON: None TECHNIQUE: Axial images were obtained through the abdomen pelvis with intravenous contrast. Sagittal and coronal reformats are generated. All CT scans at this facility are performed using dose modulation techniques as appropriate to a performed exam including the following: automated exposure control with adjustment of the mA and/or kV according to patient size. RADIATION DOSE: CTDIvol: 16.7 mGy DLP: 903.8 mGy-cm Dose information generated by the CT scanner is available in PACS. FINDINGS: Lung bases are clear. Extensive postoperative changes noted in the lower thoracic spine and upper lumbar spine. There is a moderate size hiatal hernia. The liver and spleen are homogeneous. Gallbladder is without sludge or stone and there is no wall thickening. The pancreas is unremarkable. Adrenals are normal in morphology. Small right renal cyst noted. Small bowel loops are nondistended. The distal terminal ileum is mildly thickened and there is slight surrounding induration. Question history of terminal ileitis or Crohn's disease. The appendix is not seen. The colon is also nondistended with average amount of stool. There is no free fluid or free air. No pathologic adenopathy demonstrated. Urinary bladder appears unremarkable. Mild degenerative changes of the spine noted. IMPRESSION: DISTAL TERMINAL ILEUM IS MILDLY THICKENED WITH SLIGHT SURROUNDING INDURATION. QUESTION HISTORY OF TERMINAL ILEITIS OR CROHN'S DISEASE. APPENDIX NOT VISUALIZED. POSTOPERATIVE CHANGES WITH FIXATION HARDWARE IN THE THORACOLUMBAR SPINE. MODERATE SIZE HIATAL HERNIA.
[2019-08-17] MEDS ORDERED: METRONIDAZOLE500 MG ORAL (14:15)
[2019-08-17] MEDS ORDERED: CIPROFLOXACIN500 M2 ORAL (14:15)
[2019-08-17] MEDS ORDERED: ZOFRAN4 MG ORAL (14:15)
[2019-08-17 14:20] VITALS: BP 120/76
--- NOTE | 2019-08-17 14:21 | NUR ---
ER DISCHARGE NOTE: Patient is cleared to be discharged per ERMD, pt is aox4, on room air, with stable vital signs. pt was given dc and prescription instructions, pt was able to verbalize understanding, pt id band and iv site removed without complications. pt is able to ambulate with steady gait. pt took all belongings.
== END 2019-08-17 14:22 | disposition home or self-care (01) ==
LOC: EMR 12:28
DX: K52.9 Noninfective gastroenteritis and colitis, unspecified (principal); Z88.0 Allergy status to penicillin; I10 Essential (primary) hypertension; I25.2 Old myocardial infarction; K44.9 Diaphragmatic hernia without obstruction or gangrene
CPT/HCPCS: 36415; 74177; 80053; 81003; 83690; 85025; 96374; 96375; J1885; J2405; Q9967; Z7502; 99284

== ENCOUNTER 2019-11-30 20:58 | Emergency (ER) | payer MEDICAID ==
[~2019-11-30] VITALS: Ht 185.4 cm; Wt 108.9 kg
[~2019-11-30 20:58] MED LIST changes: +BANOPHEN50 MG PO; +CARAFATE1 G1 ORAL; +CIPROFLOXACIN500 M2 ORAL; +LEVOCETIRIZINE D5 MG ORAL; +METRONIDAZOLE500 MG ORAL; +PROPRANOLOL HCL40 MG ORAL; +SULFAMETHOXAZO480 ML ORAL; +ZOFRAN4 MG ORAL
--- NOTE | 2019-11-30 21:13 | NUR ---
ED Nurse Note: pt walked into ED from home c/o right hip radiating to right lower leg pain onset today, pt is limping when walking. Bilateral pedal pulses are even and strong, bilateral lower extremeties warm, denies numbness or tingling. Pt says he would like to get LUQ "hernia checked out." He states he has had this bulge for 10 years and currently has a "flare up." Denies nausea, vomiting, or diarrhea.
--- NOTE | 2019-11-30 21:41 | Emergency Room Report ---
History of Present Illness General Chief Complaint: Lower Extremity Injury Source: Patient (Jimbo Palomo MD) Present Illness HPI Disclaimer: Please note that this report is being documented using DRAGON technology. This can lead to erroneous entry secondary to incorrect interpretation by the dictating instrument. HPI: 34-year-old male history of degenerative disc disease, hypertension presents for evaluation of right-sided flank pain. Symptoms began yesterday. No trauma reported. Patient notes a stabbing and aching in the left flank that radiates to the right lower quadrant and down the right side of the back. Does not extend to the legs. Denies numbness or tingling, weakness urinary retention. Denies fever chills. He reports intermittent dysuria without hematuria. No prior history of kidney stones or family history of kidney stones to his knowledge. Denies any trauma, recent bending or twisting injury. He denies nausea or vomiting. Reports recent constipation. Pain exacerbated by bending and twisting. No obvious relieving factors. PMH: Hypertension, degenerative disc disease PSH: Spinal fixation Allergies: Ampicillin, tramadol Social Hx: Reviewed (Jimbo Palomo MD) Allergies: Coded Allergies: AMPICILLIN (Verified Allergy, Unknown, 06/30/19) TRAMADOL (Verified Allergy, Unknown, 06/30/19) COVID-19 Screening Contact w/high risk pt: No Recent Travel to affected area: No Experienced COVID-19 symptoms?: No COVID-19 symptoms experienced: Shortness of Breath, Cough COVID-19 Testing performed PIN MACHINE TENDER: No (Jimbo Palomo MD) Nursing Documentation-PMH Hx Cardiac Problems: Yes - "3 years ago hx of heart attack" Hx Hypertension: Yes - back surgery Hx Neurological Problems: No (Jimbo Palomo MD) Review of Systems All Other Systems: negative except mentioned in HPI (Jimbo Palomo MD) Physical Exam Vital Signs Date Time Temp Pulse Resp B/P (MAP) Pulse Ox O2 Delivery O2 Flow Rate FiO2 11/30/19 21:07 98.8 66 18 107/71 (83) 98 Room Air General: Awake and alert, no acute distress HEENT: NC/AT. EOMI. Cardiovascular: RRR. S1 and S2 normal. No murmur appreciated Resp: Normal work of breathing. No cough, wheezing or crackles appreciated Abdomen: Abdomen is soft, nondistended. Nontender. No masses. No rebound. Skin: Intact. No abrasions, laceration or rash over the exposed skin MSK: Normal tone and bulk. Moving all extremities. No obvious deformity. Neuro: Awake and alert. Mentating appropriately. Back: There is tenderness to percussion in the right flank that extends down the back. (Jimbo Palomo MD) Medical Decision Making Diagnostic Impression: Primary Impression: Right flank pain Additional Impressions: Back pain Qualified Codes: M54.5 - Low back pain Constipation Qualified Codes: K59.00 - Constipation, unspecified ER Course There is a 54-year-old male presenting for evaluation of right-sided flank pain. Differential includes not limited to UTI, pyelonephritis, cholecystitis, appendicitis, nephrolithiasis, bowel obstruction, constipation, muscular strain/sprain among others. Patient's history is more consistent with a muscular injury or pyelonephritis or nephrolithiasis. Will obtain labs, urinalysis, provide IV fluids and pain medication send the patient for CT scan of the abdomen. Patient will be signed out to oncoming provider pending lab, imaging results and final disposition. (Jimbo Palomo MD) ER Course Please see above note. Patient states pain is minimally relieved with Toradol. He rates it 8/10. Patient examined by me. Pain is more in the paraspinous area. He has good brisk reflexes both knee and ankle jerks. Good 5/5 strength and no sensory deficit no lower extremities. Straight leg raise is positive on the right-hand side and increases the pain. The pain does not radiate down the leg and radiates to the flank area recreating the pattern that he is complaining about. Labs unremarkable. CT scan with spine hardware. Discussed results with patient. As he is driving and his cannot drive at night Tylenol is administered. Prescriptions given to the patient along with all labs and CT results. As urine is normal cystitis is excluded. Lucency in the bladder is unclear. Patient advised to follow-up with his own physician soon. Patient stable for outpatient observation and treatment. Laboratory Tests Test 11/30/19 21:45 11/30/19 21:55 White Blood Count 9.4 K/UL (4.8-10.8) Red Blood Count 4.82 M/UL (4.70-6.10) Hemoglobin 15.1 G/DL (14.2-18.0) Hematocrit 44.3 % (42.0-52.0) Mean Corpuscular Volume 92 FL (80-99) Mean Corpuscular Hemoglobin 31.3 PG (27.0-31.0) H Mean Corpuscular Hemoglobin Concent 34.1 G/DL (32.0-36.0) Red Cell Distribution Width 13.1 % (11.6-14.8) Platelet Count 173 K/UL (150-450) Mean Platelet Volume 8.5 FL (6.5-10.1) Neutrophils (%) (Auto) 62.6 % (45.0-75.0) Lymphocytes (%) (Auto) 25.8 % (20.0-45.0) Monocytes (%) (Auto) 6.6 % (1.0-10.0) Eosinophils (%) (Auto) 3.7 % (0.0-3.0) H Basophils (%) (Auto) 1.3 % (0.0-2.0) Sodium Level 140 MMOL/L (136-145) Potassium Level 3.9 MMOL/L (3.5-5.1) Chloride Level 105 MMOL/L (98-107) Carbon Dioxide Level 29 MMOL/L (21-32) Anion Gap 6 mmol/L (5-15) Blood Urea Nitrogen 12 mg/dL (7-18) Creatinine 1.1 MG/DL (0.55-1.30) Estimated Glomerular Filtration Rate > 60 mL/min (>60) Glucose Level 113 MG/DL (74-106) H Calcium Level 8.9 MG/DL (8.5-10.1) Total Bilirubin 0.2 MG/DL (0.2-1.0) Aspartate Amino Transferase (AST) 18 U/L (15-37) Alanine Aminotransferase (ALT) 46 U/L (12-78) Alkaline Phosphatase 115 U/L (46-116) Total Protein 6.4 G/DL (6.4-8.2) Albumin 3.9 G/DL (3.4-5.0) Globulin 2.5 g/dL Albumin/Globulin Ratio 1.6 (1.0-2.7) Lipase 162 U/L (73-393) Urine Color Yellow Urine Appearance Clear Urine pH 5 (4.5-8.0) Urine Specific [place] 1.020 (1.005-1.035) Urine Protein Negative (NEGATIVE) Urine Glucose (UA) Negative (NEGATIVE) Urine Ketones Negative (NEGATIVE) Urine Blood Negative (NEGATIVE) Urine Nitrite Negative (NEGATIVE) Urine Bilirubin Negative (NEGATIVE) Urine Urobilinogen Normal MG/DL (0.0-1.0) Urine Leukocyte Esterase Negative (NEGATIVE) (Rito Dave MD) CT/MRI/US Diagnostic Results CT/MRI/US Diagnostic Results : Imaging Test Ordered: Abdomen and pelvis Impression 1. Subtle lucency within the into dependent portion of the urinary bladder. May represent small foci of air which may represent cystitis versus recent catheterization. Recommend clinical correlation. 2. Additional chronic findings as above. (Rito Dave MD) Last Vital Signs Date Time Temp Pulse Resp B/P (MAP) Pulse Ox O2 Delivery O2 Flow Rate FiO2 11/30/19 21:07 98.8 66 18 107/71 (83) 98 Room Air (Jimbo aPlomo MD) Last Vital Signs Date Time Temp Pulse Resp B/P (MAP) Pulse Ox O2 Delivery O2 Flow Rate FiO2 11/30/19 22:51 98.5 16 113/77 98 Room Air 11/30/19 21:07 66 Status: improved (Rito Dave MD) Disposition: HOME, SELF-CARE Condition: Improved Scripts Lactulose (LACTULOSE*) 20 Gm/30 Ml Solution 30 ML ORAL BID PRN for Constipation, #240 ML 0 Refills Prov: Rito Dave MD 11/30/19 Ibuprofen* (MOTRIN*) 600 Mg Tablet 600 MG ORAL Q6H PRN for FOR PAIN, #20 TAB 0 Refills Prov: Rito Dave MD 11/30/19 Hydrocodone Bit/Acetaminophen 5-325* (NORCO 5-325 TABLET*) 1 Each Tablet 1 TAB ORAL Q6H PRN for FOR PAIN, #10 TAB 0 Refills Prov: Rito Dave MD 11/30/19 Referrals: NON PHYSICIAN (PCP) Jimbo Palomo MD Nov 30, 2019 21:41 Rito Dave MD Nov 30, 2019 22:40
[2019-11-30] MEDS ORDERED: Ketorolac 30mg Inj IV ONE (21:45)
--- NOTE | 2019-11-30 21:45 | NUR ---
ED Nurse Note: blood sent to lab
--- NOTE | 2019-11-30 21:46 | NUR ---
ED Nurse Note: pt went down to CT via wheelchair in stable condition accompanied by CT staff
--- NOTE | 2019-11-30 21:55 | NUR ---
ED Nurse Note: pt back from CT in stable condition.
--- NOTE | 2019-11-30 22:00 | NUR ---
ED Nurse Note: urine sent to lab
[2019-11-30 22:05] LABS: APPEARANCE,URINE CLEAR; BILIRUBIN, URINE NEGATIVE (NEGATIVE); GLUCOSE, URINE (UA) NEGATIVE (NEGATIVE); KETONES,URINE NEGATIVE (NEGATIVE); LEUKOCYTE ESTERASE ,URINE NEGATIVE (NEGATIVE); NITRITE,URINE NEGATIVE (NEGATIVE); PH,URINE 5 (4.5-8.0); PROTEIN,URINE NEGATIVE (NEGATIVE); UROBILINOGEN,URINE NORMAL MG/DL (0.0-1.0)
[2019-11-30 22:05] LABS: ANION GAP 6 mmol/L (5-15); BLOOD UREA NITROGEN 12 mg/dL (7-18); CALCIUM 8.9 MG/DL (8.5-10.1); CARBON DIOXIDE 29 MMOL/L (21-32); CHLORIDE 105 MMOL/L (98-107); CREATININE 1.1 MG/DL (0.55-1.30); POTASSIUM 3.9 MMOL/L (3.5-5.1); SODIUM 140 MMOL/L (136-145)
[2019-11-30 22:08] LABS: COLOR,URINE YELLOW
[2019-11-30 22:10] LABS: ALANINE AMINOTRANSFERASE 46 U/L (12-78); ALBUMIN 3.9 G/DL (3.4-5.0); ALBUMIN/GLOBULIN RATIO 1.6 (1.0-2.7); ALKALINE PHOSPHATASE 115 U/L (46-116); ASPARTATE AMINO TRANSFERASE 18 U/L (15-37); BILIRUBIN,TOTAL 0.2 MG/DL (0.2-1.0)
[2019-11-30 22:12] LABS: BASOPHILS % (AUTO) 1.3 % (0.0-2.0); EOSINOPHILS % (AUTO) 3.7 % (0.0-3.0); HEMATOCRIT 44.3 % (42.0-52.0); HEMOGLOBIN 15.1 G/DL (14.2-18.0); LYMPHOCYTES % (AUTO) 25.8 % (20.0-45.0); MEAN CORPUSCULAR VOLUME 92 FL (80-99); MONOCYTES % (AUTO) 6.6 % (1.0-10.0); NEUTROPHILS % (AUTO) 62.6 % (45.0-75.0); PLATELET COUNT 173 K/UL (150-450); RED BLOOD COUNT 4.82 M/UL (4.70-6.10); RED CELL DISTRIBUTION WIDTH 13.1 % (11.6-14.8); WHITE BLOOD COUNT 9.4 K/UL (4.8-10.8)
--- NOTE | 2019-11-30 22:19 | Diagnostic Imaging Report ---
EXAM: CT Abdomen and Pelvis Without Intravenous Contrast CLINICAL HISTORY: FLANK TECHNIQUE: Axial computed tomography images of the abdomen and pelvis without intravenous contrast. CTDI is 16.9 mGy and DLP is 975 mGy-cm. One or more of the following dose reduction techniques were used: automated exposure control, adjustment of the mA and/or kV according to patient size, use of iterative reconstruction technique. COMPARISON: CT dated 08/17/2019 FINDINGS: Lung bases: Unremarkable. No mass. No consolidation. Mediastinum: Moderate hiatal hernia. ABDOMEN: Liver: Unremarkable. Gallbladder and bile ducts: Unremarkable. No calcified stones. No ductal dilation. Pancreas: Unremarkable. No ductal dilation. Spleen: Unremarkable. No splenomegaly. Adrenals: Unremarkable. No mass. Kidneys and ureters: Mild bilateral perinephric fat stranding suggesting chronic medical renal disease. No obstructing stones. No hydronephrosis. Stomach and bowel: Unremarkable. No obstruction. No mucosal thickening. PELVIS: Appendix: Normal appendix. Bladder: Subtle lucency within the and the dependent portion of the urinary bladder. No stones. Reproductive: Unremarkable as visualized. ABDOMEN and PELVIS: Intraperitoneal space: Unremarkable. No free air. No significant fluid collection. Bones/joints: Postsurgical changes of the thoracic and upper lumbar spine as well as left rib cage. No acute fracture. No dislocation. Soft tissues: Small fat-containing umbilical hernia. Vasculature: Atherosclerotic vascular disease. No abdominal aortic aneurysm. Lymph nodes: Unremarkable. No enlarged lymph nodes. IMPRESSION: 1. Subtle lucency within the into dependent portion of the urinary bladder. May represent small foci of air which may represent cystitis versus recent catheterization. Recommend clinical correlation. 2. Additional chronic findings as above.
--- NOTE | 2019-11-30 22:31 | NUR ---
ED Nurse Note: EDMD aware pt c/o pain.
[2019-11-30] MEDS ORDERED: LACTULOSE20 GM/301 ORAL (22:43)
[2019-11-30] MEDS ORDERED: NORCO 5-325 TA1 EAC1 ORAL (22:43)
[2019-11-30] MEDS ORDERED: IBUPROFEN600 M1 ORAL (22:43)
[2019-11-30 22:51] VITALS: BP 113/77
--- NOTE | 2019-11-30 22:51 | NUR ---
ER DISCHARGE NOTE: Patient is cleared to be discharged per ERMD, pt states pain has improved currently 04/02. pt was given discharge paperwork, paper prescriptions, and copy of CT and lab results, with instructions to f/u with PMD. Pt was able to verbalize understanding, pt id band and iv site removed. pt is aox4, on room air, with stable vital signs. pt is able to ambulate with mild limp. pt took all belongings.
== END 2019-11-30 22:51 | disposition home or self-care (01) ==
LOC: EMR 21:11
DX: K59.00 Constipation, unspecified (principal); M54.5 Low back pain; R10.9 Unspecified abdominal pain; I10 Essential (primary) hypertension; Z88.6 Allergy status to analgesic agent; K44.9 Diaphragmatic hernia without obstruction or gangrene; K42.9 Umbilical hernia without obstruction or gangrene; I70.90 Unspecified atherosclerosis
CPT/HCPCS: 36415; 74176; 80053; 81003; 83690; 85025; 96361; 96374; J1885; J7030; Z7502; 99284